=== PATIENT | female | born 1935 | race Caucasian/White ===

== ENCOUNTER → 2017-03-31 | Outpatient (CLI) | payer OTHER, MEDICARE ==
[~2017-03-31] MED LIST: AMLODIPINE BESYL5 MG PO; ASCORBIC ACID500 M3 PO; ASPIR 8181 M1 PO; ASPIRIN E.C.81 M2 PO; ATHENOL325 MG PO; BETHANECHOL CHL25 MG PO; BIOTIN 5000MCG PO; BIOTIN5 MG PO; BISACODYL5 MG PO; CALCIUM + D 601 EACH PO; CALCIUM +D & M1 EACH PO; CALCIUM 600 +1 EACH PO; CHILD ASPIRIN81 M1 PO; CIPROFLOXACIN250 MG PO; COZAAR100 MG PO; CRANBERRY200 MG PO; Cardizem CD,Cartia X PO; Cardizem PO; Cozaar PO; DIABETA5 MG PO; DIAZEPAM5 MG PO; DILAUDID2 MG PO; DOK PLUS TABLE1 EACH PO; Diabeta,Micronase PO; FAMOTIDINE20 MG PO; FENOFIBRATE145 M1 PO; FOLIC ACID1 MG PO; FORTAMET500 M1 PO; GLUCOPHAGE XR750 MG PO; GLYBURIDE5 MG PO; Glucophage PO; HYDROCHLOROTHIA25 MG PO; Hydrodiuril,Oretic,E PO; IBUPROFEN600 MG PO; KEFLEX500 MG PO; LANTUS 10100 UNITS/ SC; LANTUS 3 M100 UNITS/ SC; LANTUS 3 M100 UNITS1 SC; LANTUS100 UNIT/1 SQ; LEVAQUIN750 MG PO; LOSARTAN POTAS100 MG PO; Levaquin PO; METFORMIN HCL1000 MG PO; METFORMIN HCL500 MG PO; METOPROLOL SUCC50 MG PO; NORVASC10 M1 PO; Norvasc PO; ONDANSETRON ODT4 MG PO; OYST-CAL D, OS500 M1 PO; POLYETHYLENE GL17 GM PO; PROVENTIL,2.5 MG/0.5 AEROSOL; SPIRIVA1 INHALATI IH; THERAGRAN1 TABLET PO; TRANSDERM-SCO1 PATCH TD; TRICOR145 MG PO; TRILIPIX135 MG PO; TYLENOL REGULA325 MG PO; VITAMIN D32000 UNIT PO; VITAMIN D33000 UNIT PO; WELCHOL625 MG PO; ZOFRAN4 MG PO
== END | disposition home or self-care (01) ==
LOC: AMB 12:46
PROC: 0QJYXZZ Inspection of Lower Bone, External Approach (ICD-10-PCS; principal; 2017-03-31)
DX: M54.16 Radiculopathy, lumbar region (principal); Z53.09 Procedure and treatment not carried out because of other contraindication

== ENCOUNTER 2018-04-02 05:04 | Inpatient (IN) | payer OTHER, MEDICARE ==
[~2018-04-02] VITALS: Ht 170.2 cm; Wt 76.6 kg
[~2018-04-02 05:04] MED LIST changes: +ASPIRIN81 M2 PO; -CHILD ASPIRIN81 M1 PO
[2018-04-02 05:51] LABS: BASOPHIL (%) 0.2 % (0-1); EOSINOPHIL (%) 0.1 % (0-5); HEMATOCRIT 38.7 % (36.0-46.0); HEMOGLOBIN 14.1 G/DL (11.9-15.5); IMMATURE GRANULOCYTE (%) 0.4 % (0.0-0.7); LYMPHOCYTE (%) 5.2 % (15-42); LYMPHOCYTE COUNT 0.9 K/uL (1.0-2.8); MCH 30.7 PG (29.0-34.0); MCHC 36.4 G/DL (30.0-36.0); MCV 84.3 FL (83-99); MONOCYTE (%) 5.7 % (3-12); NEUTROPHIL (%) 88.4 % (45-76); NEUTROPHIL COUNT 15.5 K/uL (1.8-6.4); PLATELET COUNT 209 K/uL (156-360); RBC DIS.WIDTH-CV 12.2 % (11.8-14.6); RED BLOOD COUNT 4.59 M/uL (3.80-5.20); WHITE BLOOD COUNT 17.6 K/uL (4.1-10.2)
[2018-04-02 06:04] LABS: ALBUMIN 3.9 g/dL (3.2-4.8); CHLORIDE 103 mEq/L (99-109); POTASSIUM 3.7 mEq/L (3.7-5.4); SODIUM 140 mEq/L (136-147)
[2018-04-02 06:06] LABS: GLUCOSE 337 mg/dL (70-99); TOTAL PROTEIN 6.4 g/dL (6.4-8.3)
[2018-04-02 06:10] LABS: ALKALINE PHOSPHATASE 63 IU/L (3-129); CREATININE 0.8 mg/dL (0.6-1.3); GFR ESTIMATE (CALCULATED) > 59 mL/min/
[2018-04-02 06:11] LABS: UREA NITROGEN (BUN) 20 mg/dL (9-23)
[2018-04-02 06:12] LABS: AST (GOT) 13 IU/L (2-34)
[2018-04-02 06:13] LABS: ALT (GPT) 14 IU/L (3-49); PTT 25.8 SEC (25-37)
[2018-04-02 06:15] LABS: TROP-I INTERPRETATION NEGATIVE; TROPONIN-I < 0.01 ng/mL (0.0-0.30)
[2018-04-02] MEDS ORDERED: BUTRANS1 EAC1 TD (09:41)
[2018-04-02] MEDS ORDERED: JANUVIA100 MG PO (09:41)
[2018-04-02] MEDS ORDERED: CALCIUM +D & M1 EACH PO (09:44)
[2018-04-02] MEDS ORDERED: BIOTIN1 MG PO (09:46)
[2018-04-02] MEDS ORDERED: ASCORBIC ACID100 MG PO (09:46)
[2018-04-02 10:21] LABS: HEMOGLOBIN 13.9 G/DL (11.9-15.5); MCV 84.8 FL (83-99)
[2018-04-02 11:45] VITALS: BP 152/68
[2018-04-02 16:15] VITALS: BP 140/62
[2018-04-02 16:20] LABS: HEMATOCRIT 37.6 % (36.0-46.0); HEMOGLOBIN 13.4 G/DL (11.9-15.5); MCV 85.3 FL (83-99)
[2018-04-02 19:30] VITALS: BP 127/58
[2018-04-02 22:12] LABS: HEMATOCRIT 35.5 % (36.0-46.0); HEMOGLOBIN 12.6 G/DL (11.9-15.5)
[2018-04-02 23:06] LABS: C DIFF TOXIN NEGATIVE (NEGATIVE)
[2018-04-02 23:17] VITALS: BP 143/64
[2018-04-03 03:09] VITALS: BP 153/67
[2018-04-03 06:27] LABS: HEMATOCRIT 35.6 % (36.0-46.0); HEMOGLOBIN 12.3 G/DL (11.9-15.5); MCHC 34.6 G/DL (30.0-36.0); MCV 86.8 FL (83-99); PLATELET COUNT 188 K/uL (156-360); RBC DIS.WIDTH-CV 12.8 % (11.8-14.6); RBC DIS.WIDTH-SD 40.1 % (39-53)
[2018-04-03 06:47] LABS: CHLORIDE 106 MEQ/L (99-109); CREATININE 0.8 MG/DL (0.6-1.3); GFR ESTIMATE (CALCULATED) > 59 mL/min/; POTASSIUM 3.9 MEQ/L (3.7-5.4); SODIUM 142 MEQ/L (136-147); UREA NITROGEN (BUN) 13 mg/dL (9-23)
[2018-04-03 06:51] LABS: GLUCOSE 122 mg/dL (70-99)
[2018-04-03 07:10] VITALS: BP 115/58
[2018-04-03 10:26] LABS: HEMATOCRIT 37.5 % (36.0-46.0); MCV 86.8 FL (83-99)
[2018-04-03 11:45] VITALS: BP 136/61
[2018-04-03 15:00] VITALS: BP 125/59
[2018-04-03 15:44] LABS: HEMATOCRIT 37.1 % (36.0-46.0); HEMOGLOBIN 12.5 G/DL (11.9-15.5); MCV 87.7 FL (83-99)
[2018-04-03 19:10] VITALS: BP 128/58
[2018-04-03 23:54] VITALS: BP 129/64
[2018-04-04 02:55] VITALS: BP 126/60
[2018-04-04 07:18] VITALS: BP 128/60
[2018-04-04 11:19] VITALS: BP 140/61
[2018-04-04 16:29] VITALS: BP 137/61
[2018-04-04 19:00] VITALS: BP 140/72
[2018-04-05 00:09] VITALS: BP 134/61
[2018-04-05 07:05] VITALS: BP 146/65
[2018-04-05 09:33] LABS: HEMOGLOBIN 12.9 G/DL (11.9-15.5); MCH 30.6 PG (29.0-34.0); MCHC 35.8 G/DL (30.0-36.0); MCV 85.5 FL (83-99); PLATELET COUNT 194 K/uL (156-360); RBC DIS.WIDTH-CV 12.2 % (11.8-14.6); RBC DIS.WIDTH-SD 38.5 % (39-53); RED BLOOD COUNT 4.21 M/uL (3.80-5.20); WHITE BLOOD COUNT 13.7 K/uL (4.1-10.2)
[2018-04-05 10:30] VITALS: BP 165/72
[2018-04-05 15:10] VITALS: BP 158/71
[2018-04-05 19:52] VITALS: BP 140/70
[2018-04-06] VITALS (7 sets, daily range): BP systolic 130–184; BP diastolic 35–87
[2018-04-06 05:48] LABS: HEMATOCRIT 37.7 % (36.0-46.0); MCHC 34.5 G/DL (30.0-36.0); MCV 87.1 FL (83-99); PLATELET COUNT 222 K/uL (156-360); RBC DIS.WIDTH-CV 12.1 % (11.8-14.6); RBC DIS.WIDTH-SD 39.3 % (39-53); RED BLOOD COUNT 4.33 M/uL (3.80-5.20); WHITE BLOOD COUNT 11.2 K/uL (4.1-10.2)
[2018-04-06 06:52] LABS: CHLORIDE 104 MEQ/L (99-109); CREATININE 0.7 MG/DL (0.6-1.3); GFR ESTIMATE (CALCULATED) > 59 mL/min/; GLUCOSE 96 mg/dL (70-99); POTASSIUM 3.5 MEQ/L (3.7-5.4); SODIUM 142 MEQ/L (136-147); UREA NITROGEN (BUN) 8 mg/dL (9-23)
[2018-04-06 15:52] LABS: HEMOGLOBIN 12.6 G/DL (11.9-15.5); MCV 86.5 FL (83-99)
[2018-04-07 03:43] VITALS: BP 134/73
[2018-04-07 05:26] LABS: HEMATOCRIT 33.3 % (36.0-46.0); HEMOGLOBIN 11.7 G/DL (11.9-15.5); MCH 30.4 PG (29.0-34.0); MCHC 35.1 G/DL (30.0-36.0); MCV 86.5 FL (83-99); PLATELET COUNT 218 K/uL (156-360); RBC DIS.WIDTH-CV 12.4 % (11.8-14.6); RED BLOOD COUNT 3.85 M/uL (3.80-5.20); WHITE BLOOD COUNT 10.3 K/uL (4.1-10.2)
[2018-04-07 06:15] LABS: CHLORIDE 103 MEQ/L (99-109); CREATININE 0.7 MG/DL (0.6-1.3); GFR ESTIMATE (CALCULATED) > 59 mL/min/; POTASSIUM 4.1 MEQ/L (3.7-5.4); SODIUM 139 MEQ/L (136-147); UREA NITROGEN (BUN) 8 mg/dL (9-23)
[2018-04-07 06:23] LABS: GLUCOSE 153 mg/dL (70-99)
[2018-04-07 07:05] VITALS: BP 142/78
[2018-04-07 11:13] VITALS: BP 168/78
[2018-04-07 15:57] VITALS: BP 142/82
[2018-04-07 19:25] VITALS: BP 118/62
[2018-04-07 23:04] VITALS: BP 130/54
[2018-04-08 06:18] LABS: HEMATOCRIT 37.1 % (36.0-46.0); HEMOGLOBIN 12.9 G/DL (11.9-15.5); MCH 29.8 PG (29.0-34.0); MCHC 34.8 G/DL (30.0-36.0); MCV 85.7 FL (83-99); PLATELET COUNT 262 K/uL (156-360); RBC DIS.WIDTH-CV 12.2 % (11.8-14.6); RBC DIS.WIDTH-SD 38.5 % (39-53); RED BLOOD COUNT 4.33 M/uL (3.80-5.20); WHITE BLOOD COUNT 10.6 K/uL (4.1-10.2)
[2018-04-08 06:39] LABS: CHLORIDE 103 MEQ/L (99-109); CREATININE 0.8 MG/DL (0.6-1.3); GFR ESTIMATE (CALCULATED) > 59 mL/min/; GLUCOSE 150 mg/dL (70-99); POTASSIUM 3.9 MEQ/L (3.7-5.4); SODIUM 138 MEQ/L (136-147); UREA NITROGEN (BUN) 8 mg/dL (9-23)
[2018-04-08 06:50] VITALS: BP 128/56
[2018-04-08] MEDS ORDERED: METRONIDAZOLE500 MG PO (07:32)
[2018-04-08] MEDS ORDERED: BENTYL10 MG PO (07:32)
[2018-04-08] MEDS ORDERED: CIPROFLOXACIN500 M1 PO (07:32)
== END 2018-04-08 15:18 | disposition home or self-care (01) | DRG 392 ==
LOC: EME → EDBD 05:04 → 5EAST 08:49 → EDOF 08:49 → ENRESERV 08:53 → 5EAST 10:22
PROVIDERS: Emergency Medicine; Internal Medicine; Physician Assistant; Physician Assistant Medical
DX: A09 Infectious gastroenteritis and colitis, unspecified (principal); K62.5 Hemorrhage of anus and rectum; F33.9 Major depressive disorder, recurrent, unspecified; Z66 Do not resuscitate; D64.9 Anemia, unspecified; E11.65 Type 2 diabetes mellitus with hyperglycemia; E78.5 Hyperlipidemia, unspecified; E87.6 Hypokalemia; G89.29 Other chronic pain; F41.9 Anxiety disorder, unspecified; H91.10 Presbycusis, unspecified ear; I10 Essential (primary) hypertension; I87.2 Venous insufficiency (chronic) (peripheral); I80.8 Phlebitis and thrombophlebitis of other sites; Z60.2 Problems related to living alone; Z79.4 Long term (current) use of insulin; Z95.0 Presence of cardiac pacemaker; Z79.82 Long term (current) use of aspirin; Z90.49 Acquired absence of other specified parts of digestive tract; Z90.710 Acquired absence of both cervix and uterus; Z98.1 Arthrodesis status; Z88.5 Allergy status to narcotic agent; Z88.2 Allergy status to sulfonamides; Z91.19 Patient's noncompliance with other medical treatment and regimen; Z82.0 Family history of epilepsy and other diseases of the nervous system
CPT/HCPCS: 74177; 80048; 80053; 82948; 83630; 84484; 85014; 85018; 85025; 85027; 85610; 85730; 86850; 86900; 86901; 86920; 87040; 87177; 87493; 87506; 93005; 93971; 99281; 99285; C9113; J0744; J1815; J2405; J2543; J3010; J7030; J7050; S0030